=== PATIENT | female | born 1990 | race Caucasian/White ===

== ENCOUNTER 2017-07-27 14:57 | Emergency (ER) | payer OTHER ==
[~2017-07-27] VITALS: Ht 172.7 cm; Wt 90.7 kg
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
[2017-07-27] MEDS ORDERED: ACETAMINOPHEN 325 MG TABLET PO ONE (15:30)
--- NOTE | 2017-07-27 15:30 | NUR ---
PAIN MEDS GIVEN ORDERED
[2017-07-27] MEDS ORDERED: ACETAMINOPHEN ES 500 MG TABLET ONE (15:32)
[2017-07-27 16:25] VITALS: BP 126/73
--- NOTE | 2017-07-27 16:25 | NUR ---
Patient discharged to home in stable condition. Written and verbal after care instructions given. Patient verbalizes understanding of instruction.
== END 2017-07-27 16:27 | disposition home or self-care (01) ==
LOC: ER 15:00
DX: S43.401A Unspecified sprain of right shoulder joint, initial encounter (principal); S13.9XXA Sprain of joints and ligaments of unspecified parts of neck, initial encounter; V43.62XA Car passenger injured in collision with other type car in traffic accident, initial encounter; Y93.89 Activity, other specified; Y92.89 Other specified places as the place of occurrence of the external cause; Y99.8 Other external cause status
CPT/HCPCS: 99283; A4606; Z7610